=== PATIENT | female | born 1930 | race Caucasian/White ===

== ENCOUNTER 2017-04-06 09:05 | Inpatient (IN) | payer OTHER ==
[~2017-04-06] VITALS: Ht 162.6 cm; Wt 49.9 kg
--- NOTE | ~2017-04-06 | CT71 ---
[facility] A Service of [facility] RADIOLOGY TEXT RESULTS PATIENT: ARIELLE HUGHES LOCATION: CICCU2 CIC : [birth year] UNIT #: [id number] AGE: [address]: Yumiko King MD SEX: F ORDER DR: [id number] [facility] [address] [facility]. [place], [place] [address] [id number] I MR#: [id number] Acc #: [id number] NAME: ARIELLE HUGHES : 1930 SEX: F STUDY DATE/TIME: 04/10/2017 3:55 UNIT: C3A PCU ROOM: [facility] STUDY DESCRIPTION: CT Head Wo Contrast Attending Physician: Yumiko King M.D. Ordering Physician: Mignon Jackson M.D. Primary Care Physician: Jose Andujar M.D. MEDICAL IMAGING REPORT This report is preliminary unless electronic signature is present EXAM CT head without contrast INDICATIONS Headache for the past 2 hours with light sensitivity. TECHNIQUE Unenhanced CT head. This CT exam was performed with one or more of the following radiation dose reduction techniques: automatic exposure control, adjustment of mA and/or kV according to patient size, and iterative reconstruction. COMPARISON STUDIES 10/11/2016. FINDINGS No hemorrhage, abnormal mass effect, extraaxial collection or hydrocephalus. No convincing evidence for acute or early subacute large territory infarct. No depressed calvarial fracture. The paranasal sinuses and mastoid air cells are clear. IMPRESSION No acute intracranial findings. Dictated by... Haroon Rajput M.D. THIS IS AN ELECTRONICALLY VERIFIED REPORT Haroon Rajput M.D. at 04/10/2017 10:25 PM EED/pcl [facility] A Service [facility] RADIOLOGY TEXT RESULTS PATIENT: ARIELLE HUGHES LOCATION: CICCU2 CIC : [birth year] UNIT #: [id number] AGE: [address]: Yumiko King MD SEX: F ORDER DR: TD: 04/10/2017 09:52 JOB #: [id number] MEDICAL IMAGING REPORT Page 1 of 1 COPY
--- NOTE | ~2017-04-06 | CO ---
Unit #: [id number] #: [id number] Patient: ARIELLE HUGHES [id number] [address] [address] [id number] I MR#: [id number] NAME: ARIELLE HUGHES ROOM: 474 Age: 87 Sex: F Admission Date: 04/06/2017 : 1930 Attending Physician: Akash Gardner M.D. Primary Care Physician: Jose Andujar M.D. Consultation Date: 04/10/2017 CONSULTATION REPORT REASON FOR CONSULTATION Increased heart rate. HISTORY OF PRESENT ILLNESS This is an 87-year-old female, who is a DNR with a prior history of recurrent pneumonia with aspiration, sepsis, COPD, lung cancer, status post resection in 1985, hypertension, hyperlipidemia, and diabetes. In 08/2016, she was admitted to the hospital with respiratory failure and an echocardiogram revealed depressed ejection fraction of 25% to 30%. At that time, the family did not want a cardiology consult due to the patient's DNR status. She was readmitted to the hospital on 09/2016, where she was diagnosed with CVA. On 04/06/2017, the patient presented to the ER with shortness of air and wheezing. A chest x-ray showed pneumonia and her lactic acid was 2.2. She has a history of aspiration pneumonia, but is not on dietary restrictions per the patient and family's choice. Blood cultures on 04/06/2017 showed positive gram-negative coccobacilli, probable haemophilus species x2. ID is following. This morning, her heart rate was elevated 140s to 160s SVT. Her blood pressure was stable and she was asymptomatic. She denies chest pain or palpitations. We were asked to see her to evaluate her for SVT. PAST MEDICAL HISTORY 1. Recurrent pneumonia with aspiration. 2. Sepsis. 3. COPD. 4. Lung cancer, status post resection in 1985. 5. Hypertension. 6. Hyperlipidemia. 7. Diabetes mellitus. 8. Chronic systolic congestive heart failure. 9. Echocardiogram in 08/2016 showed LVEF of 25% to 30%, RVSP 50 mmHg, rowq-un-lgwutuzl AR, moderate MR, severe septal hypokinesis. 10. Dementia. 11. CVA in 09/2016. 12. Degenerative joint disease. 13. Essential tremor. 14. Urinary incontinence. 15. GERD. 16. Seizure disorder. PAST SURGICAL HISTORY Unit #: [id number] #: [id number] Patient: ARIELLE HUGHES 1. Appendectomy. 2. Hemorrhoidectomy. 3. Cataract surgery. 4. Cholecystectomy. 5. Esophageal surgery. SOCIAL HISTORY She lives with her children. She denies alcohol or illicit drug use. She is a reformed smoker, who quit greater than 20 years ago. FAMILY HISTORY Denies family history of premature coronary artery disease. ALLERGIES She is allergic to cephalexin. HOME MEDICATIONS 1. Norvasc 10 mg p.o. daily. 2. Breo-Ellipta 2 puffs daily. 3. Calcium 500 mg p.o. daily. 4. Aricept 5 mg p.o. daily. 5. 150 mg three tablets a day. 6. Lasix 20 mg a day. 7. Keppra 500 mg twice a day. 8. Zestril 5 mg p.o. daily. 9. Lopressor 12.5 mg p.o. daily. 10. Paxil 20 mg p.o. daily. 11. Pravastatin 40 mg p.o. at bedtime. 12. Mysoline 50 mg p.o. at bedtime. 13. Albuterol MDI 1 to 2 tablets inhalation four tablets a day as needed for shortness of breath. 14. Vitamin C 1000 mg p.o. daily. REVIEW OF SYSTEMS She denies chest pain, pressure, or tightness. Denies palpitation, dizziness, orthopnea, or PND. Otherwise negative expect for what was stated in the HPI. PHYSICAL EXAMINATION VITAL SIGNS: Temperature 97.3, heart rate 89, respiratory rate 24, and blood pressure 133/105 to 153/74. GENERAL: This is an 87-year-old elderly female, resting in bed, in no acute distress. HEENT: Head is atraumatic and normocephalic. Pupils are equal and reactive. Mucous membranes are moist. NECK: Supple. Trachea is midline. Negative for JVD. LUNGS: Clear to auscultation. Nonlabored respirations. CARDIOVASCULAR: S1 and S2. Regular rate and rhythm. ABDOMEN: Soft, nontender, and nondistended. EXTREMITIES: Pulses are palpable. No pedal edema. No cyanosis. NEUROLOGIC: Alert and oriented to person and place. Moves all extremities equally and follows commands without difficulty. DIAGNOSTIC STUDIES LABORATORY RESULTS: Sodium 138, potassium 3.9, chloride 101, BUN 22, creatinine 0.8, and glucose 189. Hemoglobin 11.6, hematocrit 35.8, white blood cell count 14.6, and platelets 231. BNP 1191. Unit #: [id number] #: [id number] Patient: ARIELLE HUGHES IMAGING STUDIES: CT of the head shows no acute findings. Chest x-ray showed complete white out of right chest consistent with mucus plugging and atelectatic collapse in the right lung. CARDIOVASCULAR STUDIES: EKG revealed sinus rhythm with a ventricular rate of 70 and left bundle-branch block. ASSESSMENT 1. Paroxysmal supraventricular tachycardia. 2. Pneumonia. 3. Sepsis. 4. Acute on chronic respiratory failure. 5. Bacteremia. 6. Chronic systolic congestive heart failure with EF of 25% to 30%. 7. Hypertension. 8. Hyperlipidemia. 9. Diabetes mellitus. 10. Left bundle-branch block. PLAN CHF appears compensated. No edema or crackles. We will increase beta-guerita for rate control. Increase her lisinopril dose for her low EF. Discussed the patient's prognosis with family at the beside. They do not wish to proceed with any ischemic workup. Thank you for asking us to see this patient. We appreciate the consult. Dictated by... USAMA Brunner/dale TD: 04/12/2017 05:29 JOB #: [id number] CONSULTATION REPORT Page 1 of 1 X X CONSULTATION REPORT
--- NOTE | ~2017-04-06 | EKG ---
PATIENT: ARIELLE HUGHES UNIT #: [id number] Ventricular Rate: 86 BPM Atrial Rate: 86 BPM P-R Interval: 168 ms QRS Duration: 132 ms Q-T Interval: 410 ms QTC Calculation(Bezet): 490 ms P [place]: 43 degrees Calculated R [place]: 18 degrees Calculated T [place]: 108 degrees Diagnosis Line: Normal sinus rhythm Diagnosis Line: Left bundle branch block Diagnosis Line: Abnormal ECG Diagnosis Line: When compared with ECG of 11-OCT-2016 16:13, Diagnosis Line: T wave inversion less evident in Lateral leads Diagnosis Line: Confirmed by FAMILIA HUGHES MD ([id number]) on Diagnosis Line: 04/11/2017 12:20:45 PM INTERPRETING MD: JA
--- NOTE | ~2017-04-06 | DS ---
Unit #: [id number] #: [id number] Patient: ARIELLE HUGHES [id number] [address] [place], [place] [address] [id number] I MR#: [id number] NAME: ARIELLE HUGHES ROOM: 474 Age: 87 Sex: F Admission Date: 04/06/2017 : 1930 Discharge Date: 04/12/2017 Attending Physician: Akash Gardner M.D. Primary Care Physician: Jose Andujar M.D. DISCHARGE SUMMARY SUMMARY DATE OF April 12, 2017. HOSPITAL COURSE An 87-year-old patient was admitted in [facility] with acute respiratory failure. Patient was treated for sepsis secondary to H. influenza bacteremia and pneumonia. Patient had history of right lower lobe resection and also had systolic congestive heart failure, dementia, COPD, and hypertension. Patient's condition unfortunately did not improve and gradually declined. Patient was seen by Dr. Paz in pulmonary consultation and Dr. Denise in ID consultation. After discussing with patient's family, it was decided to make patient comfort care only and patient peacefully on April 12, 2017. Dictated by... Maddi Rojas/gomez TD: 06/14/2017 10:02 JOB #: [id number] DISCHARGE SUMMARY Page 1 of 1 X Akash Gardner MD X DISCHARGE SUMMARY
--- NOTE | ~2017-04-06 | CO ---
Unit #: [id number] #: [id number] Patient: ARIELLE HUGHES [id number] [address] [place], [place] [address] [id number] I MR#: [id number] NAME: ARIELLE HUGHES. ROOM: 468 Age: 87 Sex: F Admission Date: 04/06/2017 : 1930 Attending Physician: Akash Gardner M.D. Primary Care Physician: Jose Andujar M.D. CONSULTATION REPORT HISTORY OF PRESENT ILLNESS An 87-year-old white female, seen by Dr. Naylor in the past with a history of COPD, hypertension, seizure disorder, dementia, insulin resistance, essential tremor, lung cancer status post right lower lobe resection I believe in 1985, hyperlipidemia, DJD, depression, urinary incontinence, gastroesophageal reflux. She apparently has had a cough for the last few days. She lives with her daughter. She awakened and was quite sick of the morning of the and transported to the emergency room. Chest x-ray showed new infiltrate in the right base. In right upper lung, she has had chronic changes there before. Followup chest x-ray on the showed some worsening. Blood cultures grew H flu. She is currently being treated with subcu Lovenox, DuoNeb, Norvasc, Dulera, calcium, Aricept, Keppra, Zestril, Lopressor, Paxil, Lipitor, Mysoline, vitamin C, Solu-Medrol, and Zosyn. She is maintained on supplemental oxygen. We have been asked to see. PAST MEDICAL HISTORY Significant for the above-mentioned problems. MEDICATIONS As noted. PAST SURGICAL HISTORY Appendectomy, hemorrhoidectomy, cataract surgery, cholecystectomy, esophageal surgery, right lung lower lobe resection. FAMILY HISTORY Unable to obtain. SOCIAL HISTORY No tobacco, alcohol, or illicit drugs. Lives with children. ALLERGIES No known allergies. REVIEW OF SYSTEMS Difficult to obtain. PHYSICAL EXAMINATION GENERAL: White female in moderate distress. VITAL SIGNS: Blood pressure 181/64, pulse is 90, respiratory rate 20, afebrile. HEENT: Normocephalic and atraumatic. Pupils are equal, round, and reactive. Sclerae nonicteric. Nasal passages patent. Posterior pharynx, Unit #: [id number] #: [id number] Patient: ARIELLE HUGHES clear. Mucous membranes moist. NECK: Supple. Trachea midline. No cervical or supraclavicular lymphadenopathy. LUNGS: Reveal bilateral crackles. CARDIAC: Regular rate and rhythm. Could not appreciate murmur, rub, or gallop. ABDOMEN: Nontender. Bowel sounds present. No hepatosplenomegaly. EXTREMITIES: Without clubbing, cyanosis, or edema. SKIN: Warm and dry. NEUROLOGIC: Affect calm. Moves all extremities. Awake, responds. DIAGNOSTIC STUDIES LABORATORY RESULTS: BMP reviewed. BNP is 146. Lactic acid 3.1 and 2.2. White blood cell count was 10,700, hematocrit 44.9, and platelet count normal. Blood cultures positive for H flu. Beta lactamase positive. IMPRESSION 1. Haemophilus influenzae sepsis and pneumonia. 2. Status post right lower lobe resection with chronic changes, right base. 3. History of systolic congestive heart failure with previous ejection fraction 25%. 4. Chronic obstructive pulmonary disease. 5. Hypertension. 6. Seizure disorder. 7. Possible some history of dementia. 8. Acute respiratory failure. PLAN Broad-spectrum antibiotics to cover H flu sepsis and pneumonia, inhaled bronchodilators, IV Solu-Medrol. Followup chest x-ray. Monitor for development of congestive heart failure. DVT prophylaxis. Further recommendations pending this. Dictated by... Derrick Paz M.D. GUME/dale TD: 04/11/2017 23:58 JOB #: [id number] CONSULTATION REPORT Page 1 of 1 X Derrick Paz MD X CONSULTATION REPORT
--- NOTE | ~2017-04-06 | CR72 ---
[facility] A Service of [facility] RADIOLOGY TEXT RESULTS PATIENT: ARIELLE HUGHES LOCATION: [facility] 326-01 : [birth year] UNIT #: [id number] AGE: [address]: Yumiko King MD SEX: F ORDER DR: [id number] [facility] [address] [facility]. [place], [place] [address] [id number] I MR#: [id number] Acc #: [id number] NAME: ARIELLE HUGHES : 1930 SEX: F STUDY DATE/TIME: 04/07/2017 21:12 UNIT: [address] ROOM: [facility] STUDY DESCRIPTION: CR Chest Single View Portable Attending Physician: Yumiko King M.D. Ordering Physician: Leila Damian M.D. Primary Care Physician: Jose Andujar M.D. MEDICAL IMAGING REPORT This report is preliminary unless electronic signature is present EXAM Portable chest, 04/07/2017 HISTORY Shortness of breath, cough and chest congestion with fever for 6 months. FINDINGS The cardiac and mediastinal structures are stable compared with 04/06/2017. Right pleural effusion layering posteriorly with infiltrates and/or atelectasis throughout the majority of the right lung. Surgical chain sutures are seen in the right hilum as well as surgical clips and chain sutures are seen in the right lower lobe. Atelectasis or infiltrate left lower lobe. Underlying emphysematous changes. Pleural thickening right apex. IMPRESSION Interval increase in infiltrates in the right upper lobe and right lower lobe compared with 04/06/2017. Dictated by... Tien Connor M.D. THIS IS AN ELECTRONICALLY VERIFIED REPORT Tien Connor M.D. at 04/08/2017 7:23 AM GILLIAN/rin TD: 04/08/2017 04:27 JOB #: [id number] MEDICAL IMAGING REPORT [facility] A Service [facility] RADIOLOGY TEXT RESULTS PATIENT: ARIELLE HUGHES LOCATION: [facility] 326-01 : [birth year] UNIT #: [id number] AGE: [address]: Yumiko King MD SEX: F ORDER DR: Page 1 of 1 COPY
--- NOTE | ~2017-04-06 | CR72 ---
[facility] A Service of [facility] RADIOLOGY TEXT RESULTS PATIENT: ARIELLE HUGHES LOCATION: [place] [address] : [birth year] UNIT #: [id number] AGE: [address]: Akash Gardner MD SEX: F ORDER DR: [id number] [facility] [address] [place], [place] [address] [id number] I MR#: [id number] #: [id number] NAME: ARIELLE HUGHES. : 1930 SEX: F STUDY DATE/TIME: 04/10/2017 6:24 UNIT: C3A PCU ROOM: [facility] STUDY DESCRIPTION: CR Chest Single View Portable Attending Physician: Yumiko King M.D. Ordering Physician: Miguel Ángel Paz M.D. Primary Care Physician: Jose Andujar M.D. MEDICAL IMAGING REPORT This report is preliminary unless electronic signature is present EXAM Portable AP chest COMPARISON 02/05/2017, 04/06/2017. HISTORY 87-year-old female with dyspnea, cough and chest congestion for 6 months. Fever, weakness. FINDINGS IMPRESSION There is now new complete whiteout of the right chest, most consistent with mucous plugging and atelectatic collapse of the right lung. Underlying pleural effusion cannot be excluded. There may be a component of pneumonia. Suture material and surgical clips again noted in the right hilar region. There is slight shift of the cardiomediastinal structures to the right, new from comparison and consistent with new volume loss in the right lung. Calcified granulomas noted in the left lung. There is slightly increased interstitial prominence in the left upper lobe, a nonspecific finding, perhaps reflecting bronchovascular crowding. Developing pneumonia cannot be excluded. Interstitial opacities left lung base are grossly stable, reflecting atelectasis versus possibly pneumonia. Dictated by... Cristian Grigsby M.D. THIS IS AN ELECTRONICALLY VERIFIED REPORT Cristian rGigsby M.D. at 04/17/2017 4:07 PM BLM/pcl TD: 04/10/2017 11:22 [facility] A Service of [facility] RADIOLOGY TEXT RESULTS PATIENT: ARIELLE HUGHES [facility] [id number] [facility] [birth year] UNIT #: [id number] AGE: [address]: Akash Gardner MD SEX: F ORDER DR: JOB #: [id number] MEDICAL IMAGING REPORT Page 1 of 1 COPY
--- NOTE | ~2017-04-06 | CR63 ---
[facility] A Service of [facility] & [facility] RADIOLOGY TEXT RESULTS PATIENT: ARIELLE HUGHES LOCATION: [facility] 326-01 : [birth year] UNIT #: [id number] AGE: [address]: Jarrett Stratton MD SEX: F ORDER DR: [id number] [facility] [address] [facility] [place], [place] [address] [id number] MR#: [id number] #: [id number] NAME: ARIELLE HUGHES. : 1930 SEX: F STUDY DATE/TIME: 04/06/2017 10:05 UNIT: [facility] ROOM: STUDY DESCRIPTION: CR Chest 2 View Attending Physician: Ramy Lugo D.O. Ordering Physician: Ramy Lugo D.O. Primary Care Physician: Jose Andujar M.D. MEDICAL IMAGING REPORT This report is preliminary unless electronic signature is present EXAM Chest 2 views, 04/06/2017 10:05 hours HISTORY 87-year-old woman with shortness of air, cough, nausea, vomiting and fever since yesterday. Prior history of lung carcinoma. COMPARISON Chest x-ray, 01/26/2017 FINDINGS Seated upright frontal and lateral views of the chest were performed in a wheelchair. Cardiac size is normal. Mediastinal and hilar contours are normal. There is underlying emphysematous and calcified granulomatous change. There are no acute densities in the left lung. There is postop change in the right lung with new airspace density in the mid lung region and persistent blunting of the costophrenic sulcus. Finding is concerning for pneumonia in the right mid lung. IMPRESSION Postop changes in the right hemithorax with new airspace density in the right midlung region concerning for pneumonia. The left lung is clear. There is underlying emphysematous and calcified granulomatous change. There is postop change in the right hemithorax. Dictated by... Leslie Pope M.D. THIS IS AN ELECTRONICALLY VERIFIED REPORT Leslie Pope M.D. at 04/06/2017 2:30 PM SHARAD/ginger TD: 04/06/2017 11:22 [facility] A Service of [facility] & [facility] RADIOLOGY TEXT RESULTS PATIENT: ARIELLE HUGHES LOCATION: [facility] 326-01 : [birth year] UNIT #: [id number] AGE: [address]: Jarrett Stratton MD SEX: F ORDER DR: JOB #: [id number] MEDICAL IMAGING REPORT Page 1 of 1 COPY
--- NOTE | ~2017-04-06 | HP ---
Unit #: [id number] #: [id number] Patient: ARIELLE HUGHES [id number] [address] [address] [id number] I MR#: [id number] NAME: ARIELLE HUGHES. ROOM: 326 Age: 87 Sex: F Admission Date: 04/06/2017 : 1930 Attending Physician: Jarrett Stratton M.D. Primary Care Physician: Jose Andujar M.D. HISTORY AND PHYSICAL CHIEF COMPLAINT Shortness of breath. HISTORY OF PRESENT ILLNESS The patient is an 87-year-old female brought to [facility] Emergency Department secondary to some shortness of breath. The patient herself is a poor historian, and I am unable to get a history from her. She tells me she was brought to the emergency department because she pees when she coughs, and she finds that to be embarrassing. PAST MEDICAL HISTORY 1. Pneumonia and sepsis. 2. Chronic obstructive pulmonary disease. 3. Hypertension. 4. Seizure disorder. 5. Dementia. 6. Insulin resistance. 7. Essential tremor. 8. Lung cancer, status post lung resection in 1985. 9. Hyperlipidemia. 10. Degenerative joint disease. 11. Depression. 12. Urinary incontinence. 13. Gastroesophageal reflux disease. 14. Aspiration pneumonias for which she has no special diet. PAST SURGICAL HISTORY 1. Appendectomy. 2. Hemorrhoidectomy. 3. Cataract surgery. 4. Cholecystectomy. 5. Esophageal surgery. SOCIAL HISTORY No tobacco, alcohol, or illicit drug use. She lives with her children. FAMILY HISTORY Unable to obtain. HOME MEDICATIONS 1. Vitamin C. 2. Lopressor 12.5 mg p.o. daily. 3. Paxil 20 mg daily. 4. Pravastatin 40 mg daily. Unit #: [id number] #: [id number] Patient: ARIELLE HUGHES 5. Primidone 50 mg at bedtime. 6. Ventolin q.i.d. as needed for shortness of breath. 7. Calcium plus D daily. 8. Aricept 5 mg daily. 9. Ferrex 150 plus calcium daily. 10. Lasix 20 mg daily. 11. Keppra 500 mg p.o. b.i.d. 12. Zestril 5 mg p.o. daily. 13. Norvasc 10 mg p.o. daily. 14. Breo Ellipta 100/25 at 2 puffs daily. ALLERGIES No known drug allergies. REVIEW OF SYSTEMS Unable to obtain. PHYSICAL EXAMINATION VITAL SIGNS: Temperature 100.2, pulse 113, and blood pressure 152/81. GENERAL: An 87-year-old female in no acute distress who appears stated age. HEENT: Pupils equally round. Extraocular movements intact. Mucous membranes dry. NECK: Supple. No JVD, no lymphadenopathy. CARDIAC: Regular rate and rhythm. No murmurs, gallops, or rubs. LUNGS: Right-sided crackles. No wheezes. Equal air entry bilaterally. ABDOMEN: Nontender and nondistended. Positive bowel sounds. EXTREMITIES: No clubbing, cyanosis, or edema. They are warm and dry. PSYCHIATRIC: Alert and oriented x2. Affect is appropriate. NEUROLOGIC: Cranial nerves II-XII intact grossly. Patient moves all extremities equally and with purpose. SKIN: No rashes, bruises, or ulcers. MUSCULOSKELETAL: No muscle or joint pain. No muscle or joint swelling. DIAGNOSTIC STUDIES LABORATORY: Glucose 171 and creatinine 1.1 with a GFR of 44. BNP 146. Lactic acid 3.1. White count 10.7. IMAGING: Chest x-ray consistent with right-sided pneumonia. ASSESSMENT AND PLAN 1. Sepsis. Given elevated lactic acid, source of infection, and systemic inflammatory response syndrome criteria, the patient has been started on sepsis protocol. Repeat lactic acid has been ordered. She has received fluid resuscitation. 2. Pneumonia. The patient has been started on Zosyn for recurrent aspiration pneumonia. 3. Prophylaxis. The patient has been started on Lovenox. 1. Dictated by Maddi Jean/darell TD: 04/06/2017 19:54 JOB #: [id number] Unit #: [id number] #: [id number] Patient: ARIELLE HUGHES HISTORY AND PHYSICAL Page 1 of 1 X Jarrett Stratton MD HISTORY AND PHYSICAL
--- NOTE | ~2017-04-06 | A ---
[facility] Nutrition Therapy DATE: 04/07/17 Patient: ARIELLE HUGHES Physician: MORCAR Address: [address] [place] [address] RD Room/Bed: [address] [place] [address], Zip: [place] [address] Admit Date: 04/06/17 Date of : [birth year] Height: 5 4 Weight: 130 59 NUTRITIONAL ASSESSMENT: REASON: Low BMI 87 y/o female admitted for cough, fever PMH: PNA, sepsis, HLD, HTN, seizures, dementia, lung cancer, GERD Anthropometrics: ht: 5'4" wt: 130# (59 kg) (standing scale weight 04/07) BMI: 22 -Previous weight 109#, BMI 18 Labs: Glu 158, Ca++ 7.7, GFR 44.5 Meds: mysoline, lipitor, zosyn, lovenox, lopressor I/O & Bowel function: 1845/7. BM 04/06 Skin Integrity: scars- RT flank, lower abd. No edema. Estimated Nutrition Needs: Increased 2' low BMI Assessment: Chart reviewed, events noted. Pt seen for low BMI, however the updated weight changes BMI to 22 (normal). RD international sales manager visited pt at bedside, family in room. Pt and pt's family reported that the pt had some weight loss when she was hospitalized in October, but has maintained a normal weight of 130# the past few months. Pt says her appetite is good, she reports that she ate 80% of her breakfast this morning. Her family reports that she eats well at home, better than she does in the hospital. RD international sales manager encouraged adequate intake and offered to order supplements. Pt agreed to ensure pudding BID. No questions at this time. RD will remain available. Dx: Underweight r/t current condition, PMH, decreased intake AEB low BMI Intervention: 1. Ensure supplements BID 2. Regular diet Monitoring, Evaluation and Goals: 1. Weight; prevent unintentional weight loss, promote healthy weight maintenance 2. Intake; consume/tolerate >50% of all meals and supplements Recommendations: 1. Ensure chocolate pudding BID 2. Continue current regular diet. [facility] Nutrition Therapy DATE: 04/07/17 Patient: ARIELLE HUGHES Physician: LESLIECAR Address: [address] [place] [address] RD Room/Bed: [address] [place] [address], Zip: [place] [address] Admit Date: 04/06/17 Date of : [birth year] Height: 5 4 Weight: 130 59 3. Encourage adequate PO intake, monitor food intake daily. RD will f/u per protocol as pt is at mild nutritional risk. Respectfully, SP SIMMS, management intern Sarah Randall, RD, LD [facility] cc: client file
--- NOTE | ~2017-04-06 | CR72 ---
[facility] A Service of [facility] & [facility] RADIOLOGY TEXT RESULTS PATIENT: ARIELLE HUGHES LOCATION: [place] [address] : [birth year] UNIT #: [id number] AGE: [address]: Akash Gardner MD SEX: F ORDER DR: [id number] [facility] [address]. [place], [place] [address] [id number] MR#: [id number] Acc #: [id number] NAME: ARIELLE HUGHES. : 1930 SEX: F STUDY DATE/TIME: 04/11/2017 2:21 UNIT: [facility] ROOM: [facility] STUDY DESCRIPTION: CR Chest Single View Portable Attending Physician: Yumiko King M.D. Ordering Physician: Yumiko King M.D. Primary Care Physician: Jose Andujar M.D. MEDICAL IMAGING REPORT This report is preliminary unless electronic signature is present EXAM Portable chest INDICATION Shortness of air for the past 5 days. PROCEDURE Frontal view chest COMPARISON 04/10/2017 FINDINGS Heart size is probably stable. Right effusion is smaller and there is improving aeration in the right lung. IMPRESSION Smaller right effusion with improved aeration in the right lung with persistent patchy opacities. Dictated by... Haroon Rajput M.D. THIS IS AN ELECTRONICALLY VERIFIED REPORT Haroon Rajput M.D. at 04/11/2017 10:01 PM DONNIE/ginger TD: 04/11/2017 10:13 JOB #: [id number] MEDICAL IMAGING REPORT Page 1 of 1 COPY
[~2017-04-06 09:05] MED LIST: ACETAMINOPHEN PO; ACETAMINOPHEN PR; ADVAIR 1001 DISK W/D PO; ADVAIR 2501 DISK W/1 INH; ADVAIR INH; ADVAIR PO; AMLODIPINE BESY10 MG PO; ANTIVERT12.5 MG PO; ARICEPT5 M1 PO; ARICEPT5 M2 PO; ASPIRIN PO; ASPIRIN81 MG PO; ATROVENT IH; AZITHROMYCIN250 MG PO; B/P MED; BENAZEPRIL PO; BENZONATATE PO; CLOPIDOGREL75 MG PO; FERREX 150 PLU1 EACH PO; FLAGYL PO; HCTZ PO; KEFLEX500 MG PO; KEPPRA PO; KEPPRA500 M1 PO; KEPPRA500 M2 PO; KEPPRA750 MG PO; LEVAQUIN PO; LEVETIRACETAM500 MG PO; LIPITOR40 MG PO; LISINOPRIL5 MG PO; MEDROL DOSE PAK; MEDROL DOSEPAK4 MG PO; METOPROLOL TART25 MG PO; MYSOLINE50 MG PO; NORVASC PO; OS-CAL 500+D31 EACH PO; PAROXETINE HCL20 M1 PO; PATIENT'S PHARMACY; PAXIL PO; PAXIL10 MG PO; PHYSICIAN PO; PRAVASTATIN SOD40 MG PO; PREVACID PO; PRIMIDONE50 MG PO; PROTONIX PO; SIMVASTATIN40 MG PO; SYMBICORT 160/4.6 GM INH; TESSALON PERLE100 M1 PO; TYL325 PO; VICODIN 5/1 TAB 5/50 PO; WALMART PHARMACY; XOPENEX1.25 MG/0. NEB; ZOCOR PO; [UNRECOGNIZED DRUG - CODE]; [UNRECOGNIZED DRUG - OTHER]; [UNRECOGNIZED DRUG - REMARK]
[2017-04-06 10:15] LABS: BASOPHIL% 0.2 % (0-2.5); EOSINOPHIL% 0.1 % (0.0-7.0); HEMATOCRIT 44.9 % (35.0-45.0); HEMOGLOBIN 14.8 gm/dL (12.0-16.0); LYMPHOCYTE# 1.3 X10e3 (1.0-3.5); LYMPHOCYTE% 11.9 % (17.0-45.0); MEAN CELL VOLUME 90.9 FL (83-96); MEAN PLATELET VOLUME 7.7 FL (6.5-11.5); MONOCYTE# 0.2 X10e3 (0-1.0); MONOCYTE% 1.4 % (3.0-12.0); NEUTROPHIL# 9.2 X10e3 (1.5-7.1); NEUTROPHIL% 86.4 % (40-75); PLATELET COUNT 231 X10e3 (140-420); RED BLOOD COUNT 4.94 X10e (3.90-5.30); RED CELL DISTRIBUTION WIDTH 14.3 % (11.0-15.5); WHITE BLOOD COUNT 10.7 X10e3 (4.0-10.5)
[2017-04-06 10:20] LABS: DIFF IND NO
[2017-04-06 10:38] LABS: POC - CKMB 1.4 ng/mL (0.0-7.9); POC - TROPONIN <0.05 ng/mL (<=0.05)
[2017-04-06 10:52] LABS: ALBUMIN SERUM 4.1 g/dL (3.5-5.0); BILIRUBIN,TOTAL 0.9 mg/dL (0.2-2.0); BUN/CREATININE RATIO 17.27; CREATININE SERUM 1.1 mg/dL (0.6-1.4); GLOM FILT RATE Estimated 44.5 mL/min (>60); POTASSIUM 3.8 mmol/L (3.5-5.1); PROTEIN TOTAL SERUM 7.4 g/dL (6.0-8.3)
[2017-04-06] MEDS ORDERED: BREO ELLIPTA 11 EACH INH (11:53)
[2017-04-06] MEDS ORDERED: NORVASC10 MG PO (11:53)
[2017-04-06] MEDS ORDERED: FERREX 150 PLU1 EACH PO (11:54)
[2017-04-06] MEDS ORDERED: ARICEPT5 M2 PO (11:54)
[2017-04-06] MEDS ORDERED: CALCIUM500 M1 PO (11:54)
[2017-04-06] MEDS ORDERED: LASIX20 MG PO (11:54)
[2017-04-06] MEDS ORDERED: KEPPRA500 M1 PO (11:54)
[2017-04-06] MEDS ORDERED: LISINOPRIL PO (11:54)
[2017-04-06] MEDS ORDERED: ALBUTEROL17 GM INH (11:55)
[2017-04-06] MEDS ORDERED: PRAVASTATIN SOD40 MG PO (11:55)
[2017-04-06] MEDS ORDERED: PAXIL PO (11:55)
[2017-04-06] MEDS ORDERED: MYSOLINE50 M1 PO (11:55)
[2017-04-06] MEDS ORDERED: LOPRESSOR PO (11:55)
[2017-04-06] MEDS ORDERED: VITAMIN C1000 M1 PO (11:56)
[2017-04-07 05:22] LABS: HEMATOCRIT 36.4 % (35.0-45.0); MEAN CELL VOLUME 91.6 FL (83-96); MEAN CORPUSCULAR HEMOGLOBIN 29.5 PG (28-34); MEAN CORPUSCULAR HGB CONC 32.2 g/dL (30-36); RED BLOOD COUNT 3.98 X10e (3.90-5.30); RED CELL DISTRIBUTION WIDTH 14.3 % (11.0-15.5); WHITE BLOOD COUNT 11.5 X10e3 (4.0-10.5)
[2017-04-07 05:32] LABS: HEMOGLOBIN 11.7 gm/dL (12.0-16.0)
[2017-04-07 06:05] LABS: BUN/CREATININE RATIO 16.36; CALCIUM SERUM 7.7 mg/dL (8.4-10.2); CREATININE SERUM 1.1 mg/dL (0.6-1.4); GLOM FILT RATE Estimated 44.5 mL/min (>60); POTASSIUM 3.5 mmol/L (3.5-5.1)
[2017-04-08 05:21] LABS: HEMATOCRIT 36.6 % (35.0-45.0); HEMOGLOBIN 11.8 gm/dL (12.0-16.0); MEAN CELL VOLUME 91.2 FL (83-96); MEAN CORPUSCULAR HEMOGLOBIN 29.3 PG (28-34); MEAN CORPUSCULAR HGB CONC 32.2 g/dL (30-36); MEAN PLATELET VOLUME 8.4 FL (6.5-11.5); RED BLOOD COUNT 4.01 X10e (3.90-5.30); RED CELL DISTRIBUTION WIDTH 14.2 % (11.0-15.5); WHITE BLOOD COUNT 12.2 X10e3 (4.0-10.5)
[2017-04-09 05:11] LABS: HEMATOCRIT 35.9 % (35.0-45.0); HEMOGLOBIN 11.6 gm/dL (12.0-16.0); MEAN CELL VOLUME 91.2 FL (83-96); MEAN CORPUSCULAR HEMOGLOBIN 29.5 PG (28-34); MEAN CORPUSCULAR HGB CONC 32.3 g/dL (30-36); MEAN PLATELET VOLUME 8.3 FL (6.5-11.5); RED BLOOD COUNT 3.94 X10e (3.90-5.30); RED CELL DISTRIBUTION WIDTH 14.4 % (11.0-15.5); WHITE BLOOD COUNT 14.4 X10e3 (4.0-10.5)
[2017-04-09 05:45] LABS: BUN/CREATININE RATIO 31.42; CALCIUM SERUM 8.7 mg/dL (8.4-10.2); CREATININE SERUM 0.7 mg/dL (0.6-1.4); GLOM FILT RATE Estimated 76.8 mL/min (>60); POTASSIUM 3.8 mmol/L (3.5-5.1)
[2017-04-10 06:04] LABS: HEMATOCRIT 35.8 % (35.0-45.0); HEMOGLOBIN 11.6 gm/dL (12.0-16.0); MEAN CELL VOLUME 91.8 FL (83-96); MEAN CORPUSCULAR HEMOGLOBIN 29.7 PG (28-34); MEAN CORPUSCULAR HGB CONC 32.3 g/dL (30-36); RED BLOOD COUNT 3.9 X10e (3.90-5.30); RED CELL DISTRIBUTION WIDTH 14.2 % (11.0-15.5); WHITE BLOOD COUNT 14.6 X10e3 (4.0-10.5)
[2017-04-10 06:30] LABS: BUN/CREATININE RATIO 27.5; CALCIUM SERUM 8.7 mg/dL (8.4-10.2); CREATININE SERUM 0.8 mg/dL (0.6-1.4); GLOM FILT RATE Estimated 65.4 mL/min (>60); POTASSIUM 3.9 mmol/L (3.5-5.1)
[2017-04-10 12:34] LABS: MAGNESIUM 2.1 mg/dL (1.6-3.0)
[2017-04-11 05:28] LABS: HEMATOCRIT 38.4 % (35.0-45.0); HEMOGLOBIN 12.3 gm/dL (12.0-16.0); MEAN CELL VOLUME 92.4 FL (83-96); MEAN CORPUSCULAR HEMOGLOBIN 29.6 PG (28-34); MEAN PLATELET VOLUME 9.3 FL (6.5-11.5); RED BLOOD COUNT 4.15 X10e (3.90-5.30); RED CELL DISTRIBUTION WIDTH 14.3 % (11.0-15.5); WHITE BLOOD COUNT 13.2 X10e3 (4.0-10.5)
[2017-04-11 09:21] LABS: BUN/CREATININE RATIO 32.5; CALCIUM SERUM 8.9 mg/dL (8.4-10.2); CREATININE SERUM 0.8 mg/dL (0.6-1.4); GLOM FILT RATE Estimated 65.4 mL/min (>60); POTASSIUM 4.4 mmol/L (3.5-5.1)
== END 2017-04-12 11:00 | DRG 871 ==
LOC: CED 09:05 → CEDOF 12:14 → CED 12:27 → C3A PCU 13:57 → CEDOF 13:57 → C3A PCU 04-07 06:43 → CICCU2 04-10 15:09 → C4C 04-11 22:00
PROVIDERS: Emergency Medicine; Family Medicine; Internal Medicine
PROC: B24BZZZ Ultrasonography of Heart with Aorta (ICD-10-PCS; principal; 2017-04-10)
DX: A41.3 Sepsis due to Hemophilus influenzae (principal); J69.0 Pneumonitis due to inhalation of food and vomit; J96.20 Acute and chronic respiratory failure, unspecified whether with hypoxia or hypercapnia; J44.1 Chronic obstructive pulmonary disease with (acute) exacerbation; I50.22 Chronic systolic (congestive) heart failure; F05 Delirium due to known physiological condition; I47.1 Supraventricular tachycardia; B96.3 Hemophilus influenzae [H. influenzae] as the cause of diseases classified elsewhere; G40.909 Epilepsy, unspecified, not intractable, without status epilepticus; I11.0 Hypertensive heart disease with heart failure; E78.5 Hyperlipidemia, unspecified; F32.9 Major depressive disorder, single episode, unspecified; K21.9 Gastro-esophageal reflux disease without esophagitis; E11.9 Type 2 diabetes mellitus without complications; E88.81 Metabolic syndrome and other insulin resistance; I44.7 Left bundle-branch block, unspecified; F03.90 Unspecified dementia, unspecified severity, without behavioral disturbance, psychotic disturbance, mood disturbance, and anxiety; Z90.49 Acquired absence of other specified parts of digestive tract; Z66 Do not resuscitate; Z87.01 Personal history of pneumonia (recurrent); Z85.118 Personal history of other malignant neoplasm of bronchus and lung; Z88.1 Allergy status to other antibiotic agents
CPT/HCPCS: 36415; 70450; 71010; 71020; 80048; 80053; 82550; 82553; 83605; 83735; 83880; 84484; 85025; 85027; 87040; 93005; 93306; 94640; 94664; 94667; 94668; 94760; 94761; 96361; 96365; 99285; J0360; J0456; J1170; J1630; J1650; J1885; J1940; J2060; J2175; J2270; J2543; J2920; J2930; J3490

== ENCOUNTER 2017-04-12 11:01 | Inpatient (IN) | payer OTHER ==
[~2017-04-12 11:01] MED LIST changes: +ALBUTEROL17 GM INH; +BREO ELLIPTA 11 EACH INH; +CALCIUM500 M1 PO; +LASIX20 MG PO; +LISINOPRIL PO; +LOPRESSOR PO; +MYSOLINE50 M1 PO; +NORVASC10 MG PO; +VITAMIN C1000 M1 PO
== END 2017-04-15 15:18 | disposition expired | DRG 951 ==
LOC: C4C 11:01
DX: Z51.5 Encounter for palliative care (principal); J96.01 Acute respiratory failure with hypoxia; J18.9 Pneumonia, unspecified organism; A41.9 Sepsis, unspecified organism; R62.7 Adult failure to thrive; Z66 Do not resuscitate
CPT/HCPCS: J2060; J2270